=== PATIENT | female | born 1935 | race Two or more races ===

== ENCOUNTER 2017-04-17 19:22 | Inpatient (IN) | payer OTHER ==
[~2017-04-17] VITALS: Ht 149.9 cm; Wt 42.6 kg
--- NOTE | 2017-04-17 19:35 | NUR ---
GISELE FROM COURT [facility], C/O LOWER BACK PAIN AND BLQ PAIN. 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 PT AOX3 SLOVENIAN SPEAKING, SERGIO AT BEDSIDE TO TRANSLATE. RR EVEN AND UNLABORED. NO SOB NOTED. NAD NOTED. NO NVD AT THIS TIME. PT NOT DIAPHORETIC. PT GOWNED AND PLACED ON MONITOR. DR. BROOKS AT BEDSIDE FOR EVAL.
--- NOTE | 2017-04-17 19:52 | NUR ---
RADIOLOGY AT BEDSIDE FOR CXR
[2017-04-17] MEDS ORDERED: AMIO200T2 PO (20:01)
[2017-04-17] MEDS ORDERED: ASCO500T8 PO (20:01)
[2017-04-17] MEDS ORDERED: MULT1TAB73 PO (20:01)
[2017-04-17] MEDS ORDERED: LACT10SO7 PO (20:01)
[2017-04-17] MEDS ORDERED: ATOR80TA PO (20:01)
[2017-04-17] MEDS ORDERED: ZOLP5TAB7 PO (20:01)
[2017-04-17] MEDS ORDERED: HYDR-552 PO (20:01)
[2017-04-17] MEDS ORDERED: ALLO100T PO (20:01)
[2017-04-17] MEDS ORDERED: LISI2.5T2 PO (20:01)
[2017-04-17 20:04] LABS: CALCIUM, SERUM 8.4 mg/dL (8.5-10.1); CARBON DIOXIDE 26 mmol/L (21-32); CHLORIDE 102 mmol/L (98-107); CREATININE 2.2 mg/dL (0.6-1.3); GLUCOSE 153 mg/dL (74-106); INR 1.06 (0.87-1.13); POTASSIUM 5.5 mmol/L (3.5-5.1); PROTHROMBIN TIME 11.4 SECS (9.5-12.7); SODIUM SERUM 139 mmol/L (136-145); UREA NITROGEN, BLOOD 54 mg/dL (7-18)
--- NOTE | 2017-04-17 20:05 | NUR ---
URINE COLLECTED. CALLED LAB FOR LIGHTING ENGINEER.
[2017-04-17 20:11] LABS: TROPONIN I 0.019 ng/mL (0.00-0.056)
[2017-04-17 20:17] LABS: ALANINE AMINOTRANSFERASE 30 U/L (12-78); ALBUMIN 3.7 g/dL (3.4-5.0); ALKALINE PHOSPHATASE 66 U/L (46-116); ASPARTATE AMINOTRANSFERASE 29 U/L (15-37); B-TYPE NATRIURETIC PEPTIDE 15360 PG/ML (0-125); BILIRUBIN,DIRECT 0.2 mg/dL (0.0-0.2); BILIRUBIN,TOTAL 0.6 mg/dL (0.2-1.0); TOTAL PROTEIN, SERUM 8.5 g/dL (6.4-8.2)
[2017-04-17 20:20] LABS: BASOPHILS % (AUTO) 0.4 % (0.0-2.0); EOSINOPHILS % (AUTO) 0.6 % (0.0-6.0); HEMATOCRIT 27 % (33-45); HEMOGLOBIN 9.1 g/dL (11.5-14.8); LYMPHOCYTES # (AUTO) 0.4 /CMM (0.8-4.8); LYMPHOCYTES % (AUTO) 10.3 % (20.0-44.0); MEAN CORPUSCULAR HEMOGLOBIN 28 PG (26.0-33.0); MEAN CORPUSCULAR HGB CONC 33 g/dl (31.0-36.0); MEAN CORPUSCULAR VOLUME 84 fL (82-100); MONOCYTES # (AUTO) 0.3 /CMM (0.1-1.30); MONOCYTES % (AUTO) 8.5 % (2.0-12.0); NEUTROPHILS # (AUTO) 3.1 /CMM (1.8-8.9); NEUTROPHILS % (AUTO) 80.2 % (43.0-81.0); PLATELET COUNT (AUTO) 223 /CMM (150-450); RED BLOOD CELL COUNT(AUTO) 3.26 MIL/uL (4.0-5.2); WHITE BLOOD COUNT (AUTO) 3.9 K/uL (4.3-11.0)
[2017-04-17] MEDS ORDERED: FURO40TA5 PO (20:57)
[2017-04-17] MEDS ORDERED: SPIR25TA4 PO (20:57)
[2017-04-17] MEDS ORDERED: CIPR250T4 PO (20:57)
[2017-04-17] MEDS ORDERED: ONDA-25 PO (20:57)
[2017-04-17] MEDS ORDERED: ALBU8.5H2 INH (20:57)
[2017-04-17] MEDS ORDERED: [UNRECOGNIZED DRUG - CODE] PO (20:57)
[2017-04-17] MEDS ORDERED: METO25TA6 PO (20:57)
[2017-04-17] MEDS ORDERED: APIX2.5T PO (20:57)
[2017-04-17] MEDS ORDERED: PANT40TA4 PO (20:57)
[2017-04-17] MEDS ORDERED: FERR325T6 PO (20:57)
--- NOTE | 2017-04-17 20:57 | NUR ---
PT TO RADIOLOGY FOR CT ABD
--- NOTE | 2017-04-17 21:10 | NUR ---
DR. BROOKS SPEAKING TO DR. CYRUS MESSER REGARDING ADMISSION
--- NOTE | 2017-04-17 21:20 | NUR ---
REPORT GIVEN TO PEDRO ANDRADE FOR TELE BED 311-1
[2017-04-17 21:30] VITALS: BP 118/73
[2017-04-17] MEDS ORDERED: FUROSEMIDE 20 MG/2 ML VIAL IV ONE (21:30)
[2017-04-17 21:35] VITALS: BP 118/73
--- NOTE | 2017-04-17 21:35 | NUR ---
PUNCHER OPENING NOTES: RECEIVED PT FROM RN CAMMIE FROM ED. PT IS A/OX2-3. PT HAS PERIODS OF CONFUSION AND NOT RECALLING THINGS. PT IS WOLOF SPEAKING ONLY AND CAN ONLY SPEAK A LITTLE BIT OF [place] CITIZ[place]. PT HAS IV ON L FOREARM #20G AND IS PATENT AND INTACT. PT COMPLAINTS OF 2/10 LOWER BACK PAIN. PT INFORMED THAT FOR NOW SHE IS NPO SINCE WE ARE AWAITING FOR ADMISSION ORDERS. NO SOB. CALL LIGHT WITHIN PT'S REACH. BED KEPT IN LOW, LOCKED POSITION, AND SIDE RAILS X 2 UP. WILL CONTINUE TO MONITOR PT.
--- NOTE | 2017-04-17 21:38 | NUR ---
PT TRANSFERED PER ACLS PROTOCOL TO [facility] BED 311-1
[2017-04-17] MEDS ORDERED: MAGNESIUM HYDROXIDE 30 ML UDC PO PRN (22:30)
[2017-04-17] MEDS ORDERED: ACETAMINOPHEN 325 MG TABLET PO PRN (22:30)
[2017-04-17] MEDS ORDERED: ZOLPIDEM TARTRATE 5 MG TABLET PO PRN (22:30)
[2017-04-17] MEDS ORDERED: ONDANSETRON HCL/PF 4 MG/2 ML VIAL IVP PRN (22:30)
[2017-04-17] MEDS ORDERED: MAG HYDROX/AL HYDROX/SIMETH 30 ML UDC PO PRN (22:30)
[2017-04-17] MEDS ORDERED: Z GUARD REMEDY 2 OZ OINT TP PRN (22:30)
[2017-04-17] MEDS ORDERED: BUMETANIDE INJ 0.25 MG/ML VIAL ONE (22:42)
[2017-04-17] MEDS ORDERED: BUMETANIDE INJ 6 MG in IV NS 0.9% 36 ML IV ONE (23:00)
--- NOTE | 2017-04-17 23:17 | NUR ---
ENROBING MACHINE CORDER NOTES: BUMEX WAS ADMINISTERED AND IS TO BE RAN FOR 6 HOURS VIA IVPB. WILL CONTINUE TO MONITOR PT.
[2017-04-17] MEDS ORDERED: HYDROCODONE/APAP 5/325MG 1 EACH TABLET ONE (23:38)
[2017-04-17] MEDS: HYDROCODONE/APAP 5/325MG 1 EACH TABLET PO PRN (23:41)
--- NOTE | 2017-04-17 23:41 | NUR ---
ACQUISITIONS ANALYST NOTES: PT COMPLAINED OF 4/10 LOWER BACK PAIN. PT WAS ADMINISTERED NORCO 5-325MG PO. WILL CONTINUE TO MONITOR PT.
[2017-04-18] VITALS (8 sets, daily range): BP systolic 96–120; BP diastolic 49–73
[2017-04-18] MEDS ORDERED: HYDROCODONE/APAP 5/325MG 1 EACH TABLET ONE (04:41)
--- NOTE | 2017-04-18 05:05 | NUR ---
GARDEN WORKER NOTES: LAB IS HERE TO COLLECT BLOOD. PT KEPT NPO POST MIDNIGHT FOR LIPID PANEL.
[2017-04-18] MEDS: HYDROCODONE/APAP 5/325MG 1 EACH TABLET PO PRN ×2 (05:07→15:06)
--- NOTE | 2017-04-18 05:07 | NUR ---
JOSS HOUSE KEEPER NOTES: PT COMPLAINED OF 7/10 LOWER BACK PAIN. PT WAS ADMINISTERED NORCO 5. WILL CONTINUE TO MONITOR PT.
--- NOTE | 2017-04-18 06:45 | NUR ---
LENO SEWER CLOSING NOTES: ALL NEEDS WERE ATTENDED AND ANTICIPATED FOR. PT IS RESTING IN BED. PT IS A/OX2-3 WITH PERIODS OF CONFUSION. PT IS KHMER SPEAKING ONLY AND CAN ONLY SPEAK A LITTLE BIT OF [place]. PT IS ON TELE AND IS A-FIB 92. PT HAS IV ON L FOREARM #20G AND IS PATENT AND INTACT. BUMEX IV COMPLETE. PT IS NO S/L. NO S/S OF DISTRESS NOTED AT THIS TIME. NO SOB NOTED. CALL LIGHT WITHIN PT'S REACH. PT KEPT COMFORTABLE. BED KEPT IN LOW, LOCKED POSITION, AND SIDE RAILS X 2 UP. WILL ENDORSE TO AM NURSE FOR MARY ANN.
[2017-04-18 06:47] LABS: BASOPHILS % (AUTO) 0.6 % (0.0-2.0); EOSINOPHILS % (AUTO) 0.4 % (0.0-6.0); HEMATOCRIT 27 % (33-45); HEMOGLOBIN 9.1 g/dL (11.5-14.8); LYMPHOCYTES # (AUTO) 0.5 /CMM (0.8-4.8); LYMPHOCYTES % (AUTO) 13.8 % (20.0-44.0); MEAN CORPUSCULAR HEMOGLOBIN 28 PG (26.0-33.0); MEAN CORPUSCULAR HGB CONC 33 g/dl (31.0-36.0); MEAN CORPUSCULAR VOLUME 84 fL (82-100); MONOCYTES # (AUTO) 0.4 /CMM (0.1-1.30); MONOCYTES % (AUTO) 11.8 % (2.0-12.0); NEUTROPHILS # (AUTO) 2.5 /CMM (1.8-8.9); NEUTROPHILS % (AUTO) 73.4 % (43.0-81.0); PLATELET COUNT (AUTO) 195 /CMM (150-450); RDW COEFFICIENT OF VARIATION 18.5 (11.5-15.0); RED BLOOD CELL COUNT(AUTO) 3.24 MIL/uL (4.0-5.2); WHITE BLOOD COUNT (AUTO) 3.5 K/uL (4.3-11.0)
[2017-04-18 07:04] LABS: CALCIUM, SERUM 8.9 mg/dL (8.5-10.1); CARBON DIOXIDE 28 mmol/L (21-32); CHLORIDE 100 mmol/L (98-107); CREATININE 1.8 mg/dL (0.6-1.3); GLUCOSE 90 mg/dL (74-106); MAGNESIUM 2.6 mg/dL (1.8-2.4); POTASSIUM 4.8 mmol/L (3.5-5.1); SODIUM SERUM 138 mmol/L (136-145); UREA NITROGEN, BLOOD 53 mg/dL (7-18)
[2017-04-18 07:08] LABS: CHOLESTEROL 104 mg/dL (<200); HDL CHOLESTEROL 52 mg/dL (40-60); LDL 50 mg/dL (0-99); TRIGLYCERIDES 38 mg/dL (30-150)
[2017-04-18] MEDS: PANTOPRAZOLE 40 MG TABLET.DR PO SCH (07:30)
--- NOTE | 2017-04-18 07:46 | NUR ---
MS/RN OPENING NOTE PATIENT RECEIVED IN BED IN STABLE CONDITION. ALERT AND ORIENTED TIMES 3. SUDANESE SPEAKING. NO SIGNS OF ACUTE DISTRESS. NO COMPLAIN OF PAIN OR DISCOMFORT AT THIS TIME. ALL NEEDS ATTENDED TO. CALL LIGHT WITHIN REACH. WILL CONTINUE TO MONITOR.
[2017-04-18] MEDS ORDERED: AMIODARONE HCL 200 MG TABLET PO SCH (09:00)
[2017-04-18] MEDS ORDERED: LISINOPRIL (5MG) 5 MG TABLET PO SCH (09:00)
[2017-04-18] MEDS: ALLOPURINOL 100 MG TABLET PO SCH (09:46)
[2017-04-18] MEDS: METOPROLOL TARTRATE 25 MG TABLET PO SCH ×2 (09:47→16:46)
--- NOTE | 2017-04-18 10:00 | NUR ---
MS/RN S/B Dr Lindsey Seen by Dr Lindsey - continue with current care, including diuretics. Patient resides at [facility], due to chronic disability, will require short term placement upon discharge.
[2017-04-18] MEDS: APIXABAN 2.5 MG TABLET PO SCH ×2 (11:58→16:46)
--- NOTE | 2017-04-18 16:08 | NUR ---
MS/RN SPOKE WITH DR DOVE SPOKE WITH DR DOVE AND MADE AWARE PER PATIENT'S DAUGHTER PATIENT WAS BROUGHT TO ER DUE TO PATIENT NOTED BLOOD IN HER STOOL WITH NEW ORDER TO COLLECT STOOL FOR STOOL OB AND GI CONSULT
--- NOTE | 2017-04-18 18:16 | NUR ---
MS/RN SEEN BY DR VARMA PATIENT SEEN BY DR VARMA WITH NEW ORDER OF OB STOOL, LIPITOR AND ECHOCARDIOGRAM.
--- NOTE | 2017-04-18 18:26 | NUR ---
MS/RN CLOSING NOTE PATIENT IN BED IN STABLE CONDITION. ALERT AND ORIENTED TIMES 3. SLOVAK SPEAKING. NO SIGNS OF ACUTE DISTRESS. NO SIGNS OF PAIN OR DISCOMFORT. NEED STOOL COLLECTED FOR OB ENDORSE TO NEXT SHIFT. ALL NEEDS ATTENDED TO. CALL LIGHT WITHIN REACH. WILL ENDORSE TO NEXT SHIFT FOR CONTINUITY OF CARE.
--- NOTE | 2017-04-18 19:10 | NUR ---
RN NOTES RECEIVED PT AWAKE IN BED, HOB ELEVATED, NO SOB, NOT IN DISTRESS, ON ROOM AIR AND TOLERATED WELL. PT ALERT AND ORIENTED X2, WITH PERIODS OF CONFUSION AND FORGETFULNESS. PT CLAIMS ABDOMINAL DISCOMFORT AT THIS TIME. TELEMONITOR READS A. FIB WITH HEART RATE AT 62 . IV ACCESS ON LEFT FORE ARM PATENT AND INTACT. KEPT COMFORTABLE AND ATTENDED. FALL PRECAUTION OBSERVED. WILL CONTINUE TO MONITOR PT.
[2017-04-18] MEDS ORDERED: ATORVASTATIN 10 MG TABLET PO SCH (22:00)
[2017-04-18] MEDS ORDERED: ATORVASTATIN 40 MG TABLET PO SCH (22:00)
--- NOTE | 2017-04-18 23:16 | NUR ---
RN NOTES PT DENIES ANY PAIN AND DISCOMFORT AT THIS TIME. PT VERBALIZING HAVING DIFFICULTY SLEEPING, AMBIEN 5 MG TAB GIVEN PO AND TOLERATED WELL WILL CONTINUE TO MONITOR PT.
[2017-04-19 04:00] VITALS: BP 111/76
--- NOTE | 2017-04-19 06:32 | NUR ---
RN NOTES PT ASLEEP, BREATHING REGULAR AND UNLABORED, NO SIGNS OF DISTRESS AND DISCOMFORT NOTED, ON ROOM AIR WITH GOOD SATURATION. VITAL SIGNS STABLE, AFEBRILE. NO EPISODE OF NAUSEA AND VOMITING, NO COMPLAIN OF PAIN. TELEMONITOR READS A.FIB AT 67. ASSISTED TO THE BATHROOM, FALL PRECAUTION OBSERVED. NO SIGNIFICANT CHANGE IN CONDITION NOTED. WILL ENDORSE TO MORNING RN FOR CONTINUITY OF CARE.
[2017-04-19 06:59] VITALS: BP 100/60
[2017-04-19 07:14] LABS: BASOPHILS % (AUTO) 0.4 % (0.0-2.0); HEMATOCRIT 27 % (33-45); HEMOGLOBIN 8.9 g/dL (11.5-14.8); LYMPHOCYTES # (AUTO) 0.5 /CMM (0.8-4.8); LYMPHOCYTES % (AUTO) 16.3 % (20.0-44.0); MEAN CORPUSCULAR HEMOGLOBIN 28 PG (26.0-33.0); MEAN CORPUSCULAR HGB CONC 33 g/dl (31.0-36.0); MEAN CORPUSCULAR VOLUME 85 fL (82-100); MONOCYTES # (AUTO) 0.4 /CMM (0.1-1.30); MONOCYTES % (AUTO) 11.3 % (2.0-12.0); NEUTROPHILS # (AUTO) 2.3 /CMM (1.8-8.9); PLATELET COUNT (AUTO) 196 /CMM (150-450); RDW COEFFICIENT OF VARIATION 18.3 (11.5-15.0); RED BLOOD CELL COUNT(AUTO) 3.18 MIL/uL (4.0-5.2); WHITE BLOOD COUNT (AUTO) 3.2 K/uL (4.3-11.0)
--- NOTE | 2017-04-19 07:15 | NUR ---
ELECTROMECHANICAL EQUIPMENT TESTER NOTES PATIENT IN THE BATHROOM, VOIDED WITHOUT DIFFICULTY. PATIENT IS A/O X1 WITH CONFUSION. WITH CASING TRIMMER, REMINDED PATIENT TO USE CALL LIGHT IF SHE NEEDS ASSISTANCE. PATIENT APPEARS ANXIOUS, ON ROOM AIR, NO SOB. ON TELE MONITOR. MADE COMFORTABLE IN BED, PLACE CALL LIGHT WITHIN REACH. WILL CONT TO MONITOR.
[2017-04-19 07:58] LABS: ALANINE AMINOTRANSFERASE 25 U/L (12-78); ALBUMIN 3.2 g/dL (3.4-5.0); ALKALINE PHOSPHATASE 60 U/L (46-116); ASPARTATE AMINOTRANSFERASE 29 U/L (15-37); BILIRUBIN,TOTAL 0.5 mg/dL (0.2-1.0); CALCIUM, SERUM 8.4 mg/dL (8.5-10.1); CARBON DIOXIDE 30 mmol/L (21-32); CHLORIDE 102 mmol/L (98-107); CREATININE 1.9 mg/dL (0.6-1.3); GLUCOSE 84 mg/dL (74-106); MAGNESIUM 2.5 mg/dL (1.8-2.4); PHOSPHORUS 4.1 mg/dL (2.5-4.9); POTASSIUM 5.1 mmol/L (3.5-5.1); SODIUM SERUM 139 mmol/L (136-145); TOTAL PROTEIN, SERUM 7.3 g/dL (6.4-8.2); UREA NITROGEN, BLOOD 54 mg/dL (7-18)
[2017-04-19 08:00] VITALS: BP 111/80
[2017-04-19] MEDS: METOPROLOL TARTRATE 25 MG TABLET PO SCH ×2 (08:34→16:46)
[2017-04-19] MEDS: ALLOPURINOL 100 MG TABLET PO SCH (08:34)
[2017-04-19] MEDS: PANTOPRAZOLE 40 MG TABLET.DR PO SCH (08:34)
[2017-04-19] MEDS ORDERED: FUROSEMIDE 40 MG/4 ML VIAL IV SCH (09:00)
[2017-04-19] MEDS: HYDROCODONE/APAP 5/325MG 1 EACH TABLET PO PRN (10:29)
[2017-04-19] MEDS ORDERED: MUPIROCIN OINT 2% 22 GM TUBE SCH (15:00)
[2017-04-19 16:00] VITALS: BP_SYST 110; BP_DIAS 70; BP_DIAS 77
[2017-04-19 16:46] VITALS: BP 110/70
[2017-04-19] MEDS ORDERED: PEG 3350/NA SULF,BICARB,CL/KCL 4,000 ML BOTTLE PO ONE (17:30)
--- NOTE | 2017-04-19 17:30 | NUR ---
PATIENT IS SEEN BY DR. GUDINO-GI TODAY. MD SPOKE TO THE PATIENT WITH ANOTHER RN-SYL, PATIENT AGREED TO THE PROCEDURE COLONOSCOPY AND EGD, WITH CABIN SUPERVISOR-SYL/RN. CALLED DAUGHTER ARNIE, DR. GUDINO SPOKE TO THE DAUGHTER, SHE WILL COME TO THE FACILITY.
[2017-04-19] MEDS ORDERED: MINERAL OIL 133 ML (PYXIS) 1 EA ENEMA RC PRN (18:00)
--- NOTE | 2017-04-19 18:10 | NUR ---
ARNIE-DAUGHTER ARRIVED TO THE [facility], SPOKE TO THE PATIENT. PER DAUGHTER THE PATIENT DID NOT AGREED TO THE COLONOSCOPY AND EGD PROCEDURE. PATIENT APPEARS CONFUSED, PER DAUGHTER HER MOM FORGOT WHAT SHE SAID EARLIER. WITH RIBBON CLEANER-ELTON, EXPLAINED AGAIN THE IMPORTANCE, RISK AND BENEFITS OF THE PROCEDURE TO THE PATIENT, WITNESSED BY ANOTHER RN-SYL. PER PATIENT SHE WANTS TO GO HOME NOW, NO COLONOSCOPY AND EGD. DAUGHTER STATED SHE WILL TRANSPORT HER MOTHER TO THE [facility]. EXPLAINED TO THE DAUGHTER AND TO THE PATIENT WITH RIBBON CLEANER THE RISK, AND CONSEQUENCES INVOLVED IN LEAVING THE [facility], AMA AND THE BENEFITS OF CONTINUED TREATMENT, HOSPITALIZATION. PATIENT STILL REFUSE TO STAY AND DAUGHTER-ARNIE AGREED TO HER MOTHER.
--- NOTE | 2017-04-19 18:44 | NUR ---
CALLED [facility], SPOKE TO ANDRES ([place]). INFORMED PATIENT IS LEAVING HOSP AMA, AND DAUGHTER IS TRANSPORTING HER TO THE FACILITY. ANDRES CALLED THE [facility] POOLING OPERATOR RIGHT AWAY, AND PER ADNRES THE POOLING OPERATOR OT THE [facility] AGREED TO ACCEPT THE PATIENT BACK. CHARGE NURSE WAS INFORMED.
--- NOTE | 2017-04-19 19:00 | NUR ---
BODY AND FENDER MECHANIC- AMA PATIENT IS LEAVING AMA. SIGNED AMA FORM AND PLACE IN THE CHART. CHARGE NURSE IS AWARE. WILL INFORMED DR. MOELLER
--- NOTE | 2017-04-19 20:40 | NUR ---
CALLED DR. GUDINO LEFT VOICE MAIL TO EXCHANGE. CHARGE NURSE-NORM IS AWARE.
== END 2017-04-19 19:05 | disposition left against medical advice (07) | DRG 291 ==
LOC: ER 19:27 → TELE 21:21
PROVIDERS: ADMIT Nurse Practitioner Acute Care; ATTEND Nurse Practitioner Acute Care
DX: I13.0 Hypertensive heart and chronic kidney disease with heart failure and stage 1 through stage 4 chronic kidney disease, or unspecified chronic kidney disease (principal); I50.43 Acute on chronic combined systolic (congestive) and diastolic (congestive) heart failure; N17.0 Acute kidney failure with tubular necrosis; I31.3 Pericardial effusion (noninflammatory); D68.59 Other primary thrombophilia; I27.2 Other secondary pulmonary hypertension; E87.5 Hyperkalemia; K92.1 Melena; I42.0 Dilated cardiomyopathy; I48.91 Unspecified atrial fibrillation; K74.60 Unspecified cirrhosis of liver; R13.10 Dysphagia, unspecified; E78.5 Hyperlipidemia, unspecified; D72.819 Decreased white blood cell count, unspecified; D63.8 Anemia in other chronic diseases classified elsewhere; N18.9 Chronic kidney disease, unspecified; Z79.01 Long term (current) use of anticoagulants; Z83.3 Family history of diabetes mellitus; Z90.49 Acquired absence of other specified parts of digestive tract; R73.9 Hyperglycemia, unspecified; T50.0X5A Adverse effect of mineralocorticoids and their antagonists, initial encounter; Y92.009 Unspecified place in unspecified non-institutional (private) residence as the place of occurrence of the external cause
CPT/HCPCS: 36415; 71010-TC; 71250-TC; 80048-TC; 80053-TC; 80061-TC; 80076-TC; 83735-TC; 83880; 84100-TC; 84484-TC; 85025-TC; 85730-TC; 86850-TC; 87081-TC; 93307-TC; A4216; A4606; J3490; Z7610

== ENCOUNTER 2018-09-26 21:48 | Inpatient (IN) | payer OTHER ==
[~2018-09-26] VITALS: Ht 157.5 cm; Wt 47.2 kg
[~2018-09-26 21:48] MED LIST: ALBU8.5H8 INH; ALLO100T PO; AMIO200T4 PO; APIX2.5T PO; ASCO500T8 PO; ATOR80TA PO; CIPR250T4 PO; FERR325T6 PO; FURO40TA5 PO; HYDR-4384 PO; LACT20SO4 PO; LISI2.5T2 PO; METO25TA6 PO; MULT1TAB73 PO; ONDA4TAB10 PO; PANT40TA4 PO; PHEN-894 PO; SPIR25TA6 PO; ZOLP5TAB8 PO
--- NOTE | 2018-09-26 21:54 | NUR ---
PT GISELE. COMP OF "FELL AT ASSISTED LIVING FACILITY OFF OF A WHEELCHAIR" -SOB. -N/V -DIZZINESS. -ACUTE DISTRESS. AWAITING MD CAPPS.
[2018-09-26] MEDS ORDERED: ONDANSETRON HCL/PF 4 MG/2 ML VIAL ONE (23:26)
[2018-09-26] MEDS ORDERED: HYDROMORPHONE 1 MG/1 ML DISP.SYRIN ONE (23:26)
[2018-09-26] MEDS ORDERED: HYDROMORPHONE INJ 0.5 MG/0.5 ML SYRINGE IV ONE (23:30)
[2018-09-26] MEDS ORDERED: ONDANSETRON HCL/PF - ER 4 MG/2 ML VIAL IV ONE (23:30)
[2018-09-26 23:56] LABS: BASOPHILS % (AUTO) 0.5 % (0.0-2.0); EOSINOPHILS % (AUTO) 0.4 % (0.0-6.0); HEMATOCRIT 30 % (33-45); HEMOGLOBIN 9.5 g/dL (11.5-14.8); LYMPHOCYTES # (AUTO) 0.3 /CMM (0.8-4.8); LYMPHOCYTES % (AUTO) 4.8 % (20.0-44.0); MEAN CORPUSCULAR HGB CONC 32 g/dl (31.0-36.0); MEAN CORPUSCULAR VOLUME 90 fL (82-100); MONOCYTES # (AUTO) 0.4 /CMM (0.1-1.30); MONOCYTES % (AUTO) 6.4 % (2.0-12.0); NEUTROPHILS # (AUTO) 5.4 /CMM (1.8-8.9); NEUTROPHILS % (AUTO) 87.9 % (43.0-81.0); PLATELET COUNT (AUTO) 160 /CMM (150-450); RED BLOOD CELL COUNT(AUTO) 3.29 MIL/uL (4.0-5.2); WHITE BLOOD COUNT (AUTO) 6.1 K/uL (4.3-11.0)
[2018-09-27] VITALS (25 sets, daily range): BP systolic 88–117; BP diastolic 43–70
[2018-09-27] MEDS ORDERED: METOPROLOL TARTRATE INJ 5 MG/5 ML AMPUL IV ONE
[2018-09-27] MEDS ORDERED: FUROSEMIDE 40 MG/4 ML VIAL IV ONE
[2018-09-27] MEDS ORDERED: METOPROLOL TARTRATE INJ 5 MG/5 ML AMPUL ONE (00:06)
[2018-09-27] MEDS ORDERED: FUROSEMIDE 20 MG/2 ML VIAL ONE (00:06)
[2018-09-27 00:28] LABS: ALANINE AMINOTRANSFERASE 33 U/L (12-78); ALBUMIN 3.5 g/dL (3.4-5.0); ALKALINE PHOSPHATASE 74 U/L (46-116); ASPARTATE AMINOTRANSFERASE 33 U/L (15-37); CARBON DIOXIDE 33 mmol/L (21-32); CHLORIDE 103 mmol/L (98-107); CREATININE 1.1 mg/dL (0.6-1.3); GLUCOSE 126 mg/dL (74-106); POTASSIUM 4.8 mmol/L (3.5-5.1); SODIUM SERUM 142 mmol/L (136-145); TOTAL PROTEIN, SERUM 7.8 g/dL (6.4-8.2); UREA NITROGEN, BLOOD 38 mg/dL (7-18)
[2018-09-27 00:32] LABS: CALCIUM, SERUM 8.8 mg/dL (8.5-10.1)
[2018-09-27 01:10] LABS: APPEARANCE,URINE Clear (CLEAR); BILIRUBIN,URINE Negative (NEGATIVE); BLOOD, URINE Small Ery/uL (NEGATIVE); COLOR,URINE Yellow (YELLOW); KETONES,URINE Negative (NEGATIVE); LEUKOCYTE ESTERASE ,URINE Trace (NEGATIVE); NITRITE, URINE Negative (NEGATIVE); PH,URINE 5.5 (5.0-8.0); PROTEIN,URINE Negative (NEGATIVE); UGLUCOSE Negative (NEGATIVE); UROBILINOGEN,URINE 0.2 EU/dL (0.2)
[2018-09-27 01:41] LABS: BACTERIA,URINE Few /HPF (None Seen); RBC,URINE 0-2 /HPF (0-2); SQUAMOUS EPITHELIAL CELL,UR Few /HPF (None Seen)
--- NOTE | 2018-09-27 02:05 | NUR ---
CALL PT'S DAUGHTER, MADELIN, WITH ANY UPDATES. SEE PT DATA AND PERSON TO NOTIFY.
--- NOTE | 2018-09-27 02:31 | NUR ---
SPOKE TO DONY, RECEIVED VERBAL AUTH TO ADMIT PT TO INPATIENT. DR COBOS HAS BEEN PAGED. AWAITING CALL BACK
--- NOTE | 2018-09-27 03:07 | NUR ---
REPORT GIVEN TO TONYA VASQUEZ.
--- NOTE | 2018-09-27 03:40 | NUR ---
SPOOL WINDER NOTE RECEIVED PT FROM ER VIA STRETCHER, PT IS AOX2-3, RIGHT HIP FRACTURE, ON 8L OF O2 VIA MASK TITRATED TO 4L O2, NO S/SX OF RESPIRATORY OR CARDIAC DISTRESS, ON TELE SR, SKIN KEPT CLEAN AND DRY, F/C DRAINING TO GRAVITY YELLOW URINE, RAC #20G PATENT FLUSHING WELL. RIGHT LEG EDEMA NOTED. BED IN LOW LOCKED POSITION, CALL LIGHT WITHIN REACH, WILL CONTINUE TO MONITOR FOR ANY CHANGES IN CONDITION.
[2018-09-27] MEDS ORDERED: ONDANSETRON HCL/PF 4 MG/2 ML VIAL IV PRN (04:00)
[2018-09-27] MEDS ORDERED: HYDROMORPHONE INJ 0.5 MG/0.5 ML SYRINGE IV PRN (04:00)
--- NOTE | 2018-09-27 04:29 | NUR ---
SALES DEPARTMENT CLERK NOTE MESSAGE TO DR COBOS CONCERNING PT REACTION TO DILAUDID 1MG IN ER NEW ORDER TO DECREASE DOSE TO DILAUDID 0.5MG Q3H IV PRN AND NORCO 5/325 MG Q4H PO FOR PAIN
[2018-09-27] MEDS ORDERED: HYDROMORPHONE 1 MG/1 ML DISP.SYRIN IV PRN (04:30)
[2018-09-27 06:26] LABS: CALCIUM, SERUM 8.4 mg/dL (8.5-10.1); CARBON DIOXIDE 35 mmol/L (21-32); CHLORIDE 106 mmol/L (98-107); CREATININE 1.3 mg/dL (0.6-1.3); GLUCOSE 114 mg/dL (74-106); POTASSIUM 5.4 mmol/L (3.5-5.1); SODIUM SERUM 144 mmol/L (136-145); UREA NITROGEN, BLOOD 40 mg/dL (7-18)
[2018-09-27 06:40] LABS: CHOLESTEROL 85 mg/dL (<200); HDL CHOLESTEROL 52 mg/dL (40-60); LDL 33 mg/dL (0-99); TRIGLYCERIDES 29 mg/dL (30-150)
[2018-09-27 06:46] LABS: BASOPHILS % (AUTO) 0.2 % (0.0-2.0); HEMATOCRIT 26 % (33-45); HEMOGLOBIN 8.3 g/dL (11.5-14.8); LYMPHOCYTES # (AUTO) 0.2 /CMM (0.8-4.8); LYMPHOCYTES % (AUTO) 2.7 % (20.0-44.0); MEAN CORPUSCULAR HGB CONC 33 g/dl (31.0-36.0); MEAN CORPUSCULAR VOLUME 89 fL (82-100); MONOCYTES # (AUTO) 0.7 /CMM (0.1-1.30); MONOCYTES % (AUTO) 8.6 % (2.0-12.0); NEUTROPHILS % (AUTO) 88.5 % (43.0-81.0); PLATELET COUNT (AUTO) 142 /CMM (150-450); RED BLOOD CELL COUNT(AUTO) 2.86 MIL/uL (4.0-5.2); WHITE BLOOD COUNT (AUTO) 7.9 K/uL (4.3-11.0)
--- NOTE | 2018-09-27 07:20 | NUR ---
RN NOTES PATIENT ASLEEP, RESPONSIVE TO VERBAL AND TACTILE STIMULI. PATIENT OPENS EYES, NON-VERBAL AT THIS TIME. ON O2 AT 6LPM VIA MASK WITH SPO2 OF 94%. KEPT HOB ELEVATED, KEPT COMFORTABLE, NEEDS ATTENDED, CALL LIGHT WITHIN REACH, SAFETY MEASURES IN PLACED, WILL CONTINUE TO MONITOR.
[2018-09-27] MEDS: METOPROLOL TARTRATE 25 MG TABLET PO SCH ×2 (08:50→16:46)
[2018-09-27] MEDS: PANTOPRAZOLE 40 MG TABLET.DR PO SCH (08:51)
[2018-09-27] MEDS: ALLOPURINOL 100 MG TABLET PO SCH (08:51)
[2018-09-27] MEDS ORDERED: FUROSEMIDE 20 MG/2 ML VIAL IV SCH (09:00)
[2018-09-27] MEDS ORDERED: PHENAZOPYRIDINE HCL 200 MG TABLET PO SCH (09:00)
[2018-09-27] MEDS ORDERED: MORPHINE SULFATE INJ 2 MG/ML DISP.SYRIN IM PRN (09:00)
[2018-09-27] MEDS ORDERED: ATORVASTATIN 40 MG TABLET PO SCH (09:00)
[2018-09-27] MEDS ORDERED: FUROSEMIDE 40 MG TABLET PO SCH (09:00)
[2018-09-27] MEDS ORDERED: AMIODARONE HCL 200 MG TABLET PO SCH (09:00)
[2018-09-27 10:25] LABS: ABG BASE EXCESS 5.9 mmol/L; ABG OXYGEN SATURATION 96.5 % (92.0-98.5); ABG PCO2 76.5 mmHg (35.0-45.0); ABG PH 7.268 (7.350-7.450); AaDO2 93.2 mmHg; COHb 1.6 % (0.5-1.5); MetHb 0.5 % (0.0-1.5); O2Hb 94.5 % (94.0-97.0); SITE, ABG Right Radial; VENT MODE, BG SIMPLE MASK
--- NOTE | 2018-09-27 10:29 | NUR ---
RN NOTES ABG RESULT RELAYED TO DR. BAIRES AND RECEIVED ORDER TO TRANSFER PATIENT TO ICU.
--- NOTE | 2018-09-27 10:30 | NUR ---
RN NOTES RECEIVED ORDER FROM DR. KNOX TO TRANSFER PATIENT TO ICU FOR BIPAP.
--- NOTE | 2018-09-27 10:47 | NUR ---
RN NOTES PATIENT TRANSFERRED TO ICU VIA ACLS PROTOCOL. PATIENT REMAINS LETHARGIC, ABLE TO OPEN EYES WITH VERBAL AND TACTILE STIMULI. PLACED ON O2 AT 2LPM VIA NC. REPORT GIVEN TO CAMMIE RN FOR CONTINUITY OF CARE. BELONGINGS TRANSFERRED TO ICU. CALLED DAUGHTER MADELIN TWICE AND LEFT MESSAGES, STILL NO CALL BACK.
[2018-09-27 10:49] LABS: THYROID STIMULATING HORMONE 3.367 uIU/mL (0.358-3.74)
[2018-09-27] MEDS: IPRATROPIUM NEB FS 0.5 MG/2.5 ML AMPUL.NEB NEB SCH ×4 (11:19→22:39)
--- NOTE | 2018-09-27 11:42 | NUR ---
RN NOTE 1040: Received patient via bed from [facility]. Able to open eyes but lethargic. Transferred to ICU due to hypercarbic RF, RT placed her on Bipap. RAC g20 intact. Primary Dx for this admission is right hip fx. Awaiting BLE duplex. On 94% O2 sat on Bipap. Controlled Afib 80's on the monitor. 1130: S/E by PA of Dr. Smiley(ortho), no new order at this time. 1140: No any significant changes noted at this time. 99% O2 sat on Bipap, still lethargic. Will continue POC.
[2018-09-27] MEDS ORDERED: NALOXONE HCL 0.4 MG/ML AMPUL IV ONE (13:00)
[2018-09-27] MEDS ORDERED: ALBUTEROL FS 2.5 MG/3 ML VIAL.NEB NEB PRN (13:30)
--- NOTE | 2018-09-27 13:51 | NUR ---
RN NOTE 1230: Dr. Norton called and updated re: the patient. Obtained order to given Narcan 0.2 x1. 1245: Narcan given, patient became more awake. 1350: Still on Bipap, patient has episodes of trying to pull out Bipap tubings. Will continue to monitor.
[2018-09-27 15:01] LABS: CALCIUM, SERUM 8.4 mg/dL (8.5-10.1); CARBON DIOXIDE 32 mmol/L (21-32); CHLORIDE 106 mmol/L (98-107); CREATININE 1.8 mg/dL (0.6-1.3); GLUCOSE 101 mg/dL (74-106); POTASSIUM 5.7 mmol/L (3.5-5.1); SODIUM SERUM 143 mmol/L (136-145); UREA NITROGEN, BLOOD 46 mg/dL (7-18)
--- NOTE | 2018-09-27 17:56 | NUR ---
RN NOTE 1645: Tried to wean off Bipap, patient only tolerated for 15minutes. Patient became havign HR 120-130, O2 sat 91-92%. 1750: Patient does not want to be turned much due to right hip fracture. Positioned for comfort. Patient is clean, will endorse to next shift.
[2018-09-27] MEDS ORDERED: ZOLPIDEM TARTRATE 5 MG TABLET PO SCH (18:00)
--- NOTE | 2018-09-27 19:00 | NUR ---
MENTAL HYGIENIST NOTES Received patient awake,alert,restless and uncooperative trying to get off soft wrist restraints.On BIPAP 15/5,rate=14,30 % O2,not in nay acute distress but breathing slightly labored and deep .No sign of pain when patient is immobile but grimaces in pain when turned or moved ( when right leg is touched or moved especially).Comfort measures done,needs attended. Awaiting kayexalate from pharmacy( will administer kayexalate rectally as ordered as patient is NPO) for hyperkalemia.
--- NOTE | 2018-09-27 19:37 | NUR ---
PATIENT RECEIVED IN BIPAP 28/12, RR 14, 30%, TOLERATING WITH NO SIGN OF DISTRESS. GIVEN IN-LINE TREATMENTS WITH NO ADVERSE REACTIONS. AMBU BAG AT BEDSIDE. ALARMS ARE AUDIBLE AND VISIBLE. BIPAP PLUGGED INTO RED OUTLET. Addendum: 09/27/18 at [address] RT Amended: Links added.
[2018-09-27] MEDS ORDERED: SODIUM POLYSTYRENE SULFONATE 15 G/60 ML BOTTLE RC ONE (20:00)
[2018-09-28] VITALS (27 sets, daily range): BP systolic 90–126; BP diastolic 54–80
--- NOTE | 2018-09-28 | NUR ---
THERAPIST RRT NOTES Remains stable,tolerating BIPAP ,less restless and calmer, and .Precaution observedawake,alert not in any distress,breathing easier and non labored.Comfort care done.Precaution observed on right leg/femur when moved or turned.
[2018-09-28 00:06] LABS: ABG OXYGEN SATURATION 98.2 % (92.0-98.5); ABG PCO2 41.9 mmHg (35.0-45.0); ABG PO2 130.7 mmHg (75.0-100.0); MetHb 0.8 % (0.0-1.5); O2Hb 96.4 % (94.0-97.0); PEEP,BG 5 cm H2O; SITE, ABG Right Radial; VENT MODE, BG ST
[2018-09-28] MEDS: IPRATROPIUM NEB FS 0.5 MG/2.5 ML AMPUL.NEB NEB SCH ×6 (02:52→23:17)
--- NOTE | 2018-09-28 04:00 | NUR ---
JEWELRY DRILLING MACHINE OPERATOR NOTES Calm,awake,alert,more cooperative.Tolerating BIPAP ,with O2 sat. 97-100% ,not in any distress.AM bath given.
[2018-09-28 04:52] LABS: BASOPHILS % (AUTO) 0.1 % (0.0-2.0); HEMATOCRIT 24 % (33-45); HEMOGLOBIN 7.9 g/dL (11.5-14.8); LYMPHOCYTES # (AUTO) 0.3 /CMM (0.8-4.8); LYMPHOCYTES % (AUTO) 5.1 % (20.0-44.0); MEAN CORPUSCULAR HGB CONC 32 g/dl (31.0-36.0); MEAN CORPUSCULAR VOLUME 89 fL (82-100); MONOCYTES # (AUTO) 0.6 /CMM (0.1-1.30); MONOCYTES % (AUTO) 9.8 % (2.0-12.0); NEUTROPHILS # (AUTO) 5.1 /CMM (1.8-8.9); PLATELET COUNT (AUTO) 127 /CMM (150-450); RED BLOOD CELL COUNT(AUTO) 2.75 MIL/uL (4.0-5.2)
[2018-09-28 04:59] LABS: CALCIUM, SERUM 8.4 mg/dL (8.5-10.1); CARBON DIOXIDE 30 mmol/L (21-32); CHLORIDE 105 mmol/L (98-107); CREATININE 2.1 mg/dL (0.6-1.3); GLUCOSE 118 mg/dL (74-106); POTASSIUM 5.4 mmol/L (3.5-5.1); SODIUM SERUM 144 mmol/L (136-145); UREA NITROGEN, BLOOD 59 mg/dL (7-18)
--- NOTE | 2018-09-28 07:00 | NUR ---
ROTOPRINTER NOTES Remains stable,still on BIPAP but non labored breathing.Awake,alert ,still on and off agitated.Report given to day shift RN Ella
--- NOTE | 2018-09-28 07:10 | NUR ---
RN INITIAL NOTES: Rec'd pt awake on bed, restless. On Bipap sating at 98%. On telemonitor, uncontrolled Afib HR 120's. Has RAC G20 SL & LFA G20 SL, both patent & intact w/ no s/sx of infection/infiltration noted. Has FC draining to BSB. Has rectal tube in place. Has B soft wrist restraints d/t episode of pulling out Bipap mask & lines. Safety precautions in place. Bed in locked & lowest pos. Call light placed w/in reach. Will cont to monitor & attend pt needs.
--- NOTE | 2018-09-28 08:00 | NUR ---
Pt seen & examined by Dr. Errol galdamez/ orders made & carried out. Per MD, may order swallow eval.
--- NOTE | 2018-09-28 08:24 | NUR ---
Pt seen & examined by Dr. Saenz. Per , change order of CT chest w/ contrast to w/o contrast. Dr. Norton informed of the changes.
[2018-09-28] MEDS ORDERED: SODIUM POLYSTYRENE SULFONATE 15 G/60 ML BOTTLE PO ONE (08:30)
[2018-09-28 08:36] LABS: ABG OXYGEN SATURATION 90.8 % (92.0-98.5); ABG PCO2 41.1 mmHg (35.0-45.0); ABG PH 7.441 (7.350-7.450); ABG PO2 62.2 mmHg (75.0-100.0); AaDO2 117.9 mmHg; COHb 1.3 % (0.5-1.5); MetHb 0.4 % (0.0-1.5); O2Hb 89.3 % (94.0-97.0); SITE, ABG Right Radial; VENT MODE, BG NC 3L
--- NOTE | 2018-09-28 08:45 | NUR ---
Pt seen & examined by Dr. Villegas, able to speak w/ dtr at bedside.
[2018-09-28] MEDS: IV NS 0.9% 1,000 ML IV PRN ×2 (08:53→20:10)
--- NOTE | 2018-09-28 09:00 | NUR ---
Pt was able to remove her B soft wrist restraints & pulled out her IV on LFA G20. Pressure dressing applied. 0930H Pt's dtr came & requested to remove pt's B soft wrist restraints. Pt is more awake & oriented, follows simple commands.
[2018-09-28] MEDS: ALLOPURINOL 100 MG TABLET PO SCH (09:10)
[2018-09-28] MEDS: PANTOPRAZOLE 40 MG TABLET.DR PO SCH (09:10)
[2018-09-28] MEDS: METOPROLOL TARTRATE 25 MG TABLET PO SCH ×3 (09:10→17:58)
--- NOTE | 2018-09-28 09:30 | NUR ---
Swallow evaluation done by Armando while dtr at bedside.
--- NOTE | 2018-09-28 10:00 | NUR ---
Reinforcement re: feeding the pt w/ strict aspiration provided to the pt's dtr as RN noted that dtr was feeding the pt while pt is in semi jenkins's position as well as giving pt pudding & water despite of health teaching done by speech therapist earlier. Dtr verbalized understanding of the health teaching provided by the RN.
[2018-09-28] MEDS: ACETAMINOPHEN 325 MG TABLET PO PRN (12:33)
--- NOTE | 2018-09-28 13:59 | NUR ---
WOUND CARE CONSULT: PT NOT SEEN YET FOR SKIN ASSESSMENT DUE TO PT SLEEPING SOUNDLY AT THIS TIME. DAUGHTER AT BEDSIDE. RECOMMENDATIONS MADE FOR SKIN PROTECTION. DISCUSSED WITH NURSING STAFF. FIRST STEP LOW AIRLOSS MATTRESS ORDERED. CURRENT GHADA SCORE IS 12. WILL SEE PT PT CONDITION PERMITS. MD IN AGREEMENT WITH PLAN OF CARE.
[2018-09-28] MEDS ORDERED: Z GUARD REMEDY 2 OZ OINT TP PRN (14:00)
--- NOTE | 2018-09-28 14:05 | NUR ---
Rec'd call from Dr. Norton & updated about pt condition w/ orders to transfer pt out if ICU to [facility]. CN & dtr made aware.
--- NOTE | 2018-09-28 14:15 | NUR ---
Pt seen & examined by Dr. Chery MD was able to talk to the dtr at bedside regarding the plan sx Pericardiocentesis. Questions & concerns of the dtr as well as pt's son (who's over the phone) were answered by . Family to decide about the said procedure. Per , poss schedule will be on Wednesday09/30/18.
[2018-09-28] MEDS: Z GUARD REMEDY 2 OZ OINT TP SCH (17:05)
[2018-09-28] MEDS: HYDROCODONE/APAP 5/325MG 1 EACH TABLET PO PRN ×2 (17:46→22:07)
--- NOTE | 2018-09-28 18:35 | NUR ---
RN CLOSING NOTES: No significant changes noted w/in shift. Pt tolerating NC at 3lpm. On telemonitor, controlled Afib HR 80bpm. Inserted new IV line on ESE G22, w/ NS x 100cc/hr infusing well. FC kept draining to BSB. Rectal tube kept in place for now s/p kayexalate. Placed on KCI mattress. Pt fed w/ strict aspiration precaution. Safety precautions kept in place. Bed in locked & lowest pos. Call light placed w/in reach. Will endorse to PM RN for MARY ANN. Awaiting [facility] bed for transfer as ordered.
--- NOTE | 2018-09-28 19:30 | NUR ---
EXPLORATION GEOLOGIST NOTE PT RECEIVED ASLEEP IN BED BUT EASILY AROUSABLE TO NAME. A/O X2 AND GUATEMALAN SPEAKING. ON 3L OF O2 VIA NC AND SATURATING WELL. BREATHING UNLABORED. HOB ELEVATED AND ON ASPIRATION PRECAUTIONS. TELE-AFIB 70'S CONTROLLED. NO C/O PAIN AT THIS TIME. IV ESE #22 CLEAN AND DRY WITH FLUIDS INFUSING. BAIRD CATHETER IN PLACE AND DRAINING BY GRAVITY. FLEXI SEAL IN PLACE AND DRAINING. CALL LIGHT WITHIN REACH. WILL MONITOR.
--- NOTE | 2018-09-28 21:21 | NUR ---
RN NOTES REPORT RECEIVED FROM LIPSTICK MOLDER YASHIRA FOR PATIENT MARY ANN
--- NOTE | 2018-09-28 21:50 | NUR ---
KEYBOARDING CLERK NOTE REPORT GIVEN TO TYLER VASQUEZ FOR CONTINUITY OF CARE.
--- NOTE | 2018-09-28 22:00 | NUR ---
RN NOTES RECEIVED THE PATIENT VIA BED FROM ICU. PT IS A/O X3, THAI SPEAKING ONLY. ON 3L NASAL CANNULA, NO S/S OF RESP DISTRESS. PT IS CONTROLLED AFIB ON THE MONITOR, HR 70'S. FLEXISEAL AND BAIRD CATH ARE INTACT. RIGHT UPPER ARM 22G WITH NS @ 100MLS/HR FLUSHED AND PATENT, NO S/S OF INFILTRATION/INFECTION, DRESSING CDI. BED LOW AND LOCKED, SIDERAILS UP, CALL LIGHT WITHIN REACH. WILL MONITOR
[2018-09-29] VITALS (11 sets, daily range): BP systolic 91–114; BP diastolic 48–75
[2018-09-29] MEDS: IPRATROPIUM NEB FS 0.5 MG/2.5 ML AMPUL.NEB NEB SCH ×7 (02:39→22:49)
--- NOTE | 2018-09-29 06:00 | NUR ---
RN CLOSING NOTES PT REMAINS STABLE OF THE MOMENT. ALL DUE MEDS GIVEN, AM CARE PROVIDED. WILL ENDORSE MARY ANN TO AM RN
[2018-09-29 07:23] LABS: BASOPHILS % (AUTO) 0.2 % (0.0-2.0); HEMATOCRIT 24 % (33-45); HEMOGLOBIN 7.5 g/dL (11.5-14.8); LYMPHOCYTES # (AUTO) 0.3 /CMM (0.8-4.8); LYMPHOCYTES % (AUTO) 3.8 % (20.0-44.0); MEAN CORPUSCULAR HGB CONC 32 g/dl (31.0-36.0); MEAN CORPUSCULAR VOLUME 90 fL (82-100); MONOCYTES # (AUTO) 0.6 /CMM (0.1-1.30); MONOCYTES % (AUTO) 7.3 % (2.0-12.0); NEUTROPHILS # (AUTO) 6.8 /CMM (1.8-8.9); NEUTROPHILS % (AUTO) 88.7 % (43.0-81.0); PLATELET COUNT (AUTO) 118 /CMM (150-450); RED BLOOD CELL COUNT(AUTO) 2.62 MIL/uL (4.0-5.2); WHITE BLOOD COUNT (AUTO) 7.7 K/uL (4.3-11.0)
[2018-09-29 07:35] LABS: ALANINE AMINOTRANSFERASE 26 U/L (12-78); ALBUMIN 2.8 g/dL (3.4-5.0); ALKALINE PHOSPHATASE 47 U/L (46-116); ASPARTATE AMINOTRANSFERASE 23 U/L (15-37); BILIRUBIN,TOTAL 1.1 mg/dL (0.2-1.0); CALCIUM, SERUM 7.6 mg/dL (8.5-10.1); CARBON DIOXIDE 32 mmol/L (21-32); CHLORIDE 106 mmol/L (98-107); CREATININE 2.3 mg/dL (0.6-1.3); GLUCOSE 92 mg/dL (74-106); MAGNESIUM 2.4 mg/dL (1.8-2.4); POTASSIUM 3.9 mmol/L (3.5-5.1); SODIUM SERUM 143 mmol/L (136-145); TOTAL PROTEIN, SERUM 6.5 g/dL (6.4-8.2); UREA NITROGEN, BLOOD 71 mg/dL (7-18)
[2018-09-29] MEDS: METOPROLOL TARTRATE 25 MG TABLET PO SCH ×2 (09:00→17:00)
[2018-09-29] MEDS ORDERED: FUROSEMIDE 20 MG/2 ML VIAL IV ONE ×2 (09:00→18:00)
[2018-09-29] MEDS: ALLOPURINOL 100 MG TABLET PO SCH (09:04)
[2018-09-29] MEDS: PANTOPRAZOLE 40 MG TABLET.DR PO SCH (09:04)
[2018-09-29] MEDS: IV NS 0.9% 1,000 ML IV PRN (09:04)
[2018-09-29] MEDS: Z GUARD REMEDY 2 OZ OINT TP SCH (09:06)
--- NOTE | 2018-09-29 09:37 | NUR ---
RN NOTE PER DR PAPITO BAIRES TO TRANSFUSE 1 UNIT OF PRBC, AND TO GIVE 20 MG OF LASIX IV AFTER TRANSFUSION. WILL CARRY OUT THE ORDERS.
--- NOTE | 2018-09-29 11:39 | NUR ---
RT Pt refused HHN tx at this time, family by bedside to help with translation. No signs of SOB or respiratory distress noted. Addendum: 09/29/18 at 1140 by PETER ALVAREZ RT Amended: Links added.
[2018-09-29] MEDS: HYDROCODONE/APAP 5/325MG 1 EACH TABLET PO PRN (12:08)
--- NOTE | 2018-09-29 14:50 | NUR ---
RN NOTE SPOKE WITH DR COBOS TO ADDRESS THE PAIN IN R HIP UNRELIEVED BY NORCO AND MORPHINE, ADJUSTED MORPHINE DOSE. WILL KAREEM OUT ORDER AND MONITOR PT.
[2018-09-29] MEDS ORDERED: MORPHINE SULFATE INJ 2 MG/ML DISP.SYRIN IV PRN (15:00)
--- NOTE | 2018-09-29 17:30 | NUR ---
RN NOTE SPOKE WITH DR COBOS ABOUT PT BEING TACHYCARDIC 145, AFIB ON THE ANALYTICS INTERN, DESPITE OF PAIN ADDRESSED AND LOPRESSOR GIVEN. PT ON MASK 10 L/MIN, BLOOD TRANSFUSION IS IN PROGRESS. PT BECAME AGITATE REMOVING ANALYTICS INTERN, PULSE OXIMETRY, OXYGEN MASK, PT PLACED ON MANJINDER. SOFT WRIST RESTRAINTS. GOT AN ORDER FOR LASIX 20 MG IV NOW. TO DISCONTINUE HER IV FLUIDS. WILL CARRY OUT AND MONITOR PT CLOSELY.
--- NOTE | 2018-09-29 17:31 | NUR ---
1729 Received all from Amita ACUÑA at [facility], pt is accepted at [facility]. Pt will transfer in am @ 5449 directly to prep and hold nurse to give report at 0500 @ [phone]. call or contact centre manager CM can be reach at [phone] for any changes. CN made aware. Addendum: 09/29/18 at 1731 by TERRENCE NEAL CMG Amended: Links added.
[2018-09-29] MEDS ORDERED: HYDROCODONE/APAP 5/325MG 1 EACH TABLET PO PRN ×3 (18:00→20:30)
[2018-09-29] MEDS ORDERED: FUROSEMIDE 40 MG/4 ML VIAL IV SCH (19:00)
--- NOTE | 2018-09-29 19:00 | NUR ---
RN NOTE SPOKE WITH DR COBOS AGAIN REGARDING THE HEART RATE AND AND PT OXYGENATION SATURATION ON MASK DROPPED TO 83-84%. PT PUT ON ON NON REBREATHER MASK 15.0 L/MIN, SATURATION 96%. CRACKLES HEARD UPON AUSCULTATION, BP STABLE. BLOOD TRANSFUSION IS ALMOST DONE, PER DR COBOS TO GIVE ANOTHER DOSE OF LASIX40 MG IV AND THEN LASIX 20 MG IV Q12H AND STAT CXR. WILL ORDER AND CARRY OUT.
--- NOTE | 2018-09-29 19:20 | NUR ---
TELE/RN INITIAL NOTES RECEIVED PT IN BED, ALERT, APPEARS CONFUSED AND RESTLESS, PT TRYING TO REMOVE MASK. DAUGHTER AT BEDSIDE. ON NRB MASK, SPO2 ON 97%. AFIB HR 150-160S. WITH ONGOING BLOOD TRANSFUSION ON RAC G20 IV. NO S/SX OF REACTION NOTED. WITH INTACT AND IN PLACED FLEXISEAL AND F/C. HOB ELEVATED. SAFETY MEASURES IN PLACED. PT IS FOR TRANSFER TO [facility] FOR SURGERY. CHARGE NURSE, HAL AWARE OF PT'S CONDITION AND ON PHONE WITH DR COBOS FOR ORDERS
--- NOTE | 2018-09-29 19:27 | NUR ---
RT Pt family requested not to give HHN tx at this time and to let the pt rest. No signs of SOB or respiratory distress noted, will continue to monitor. Addendum: 09/29/18 at 1938 by PETER ALVAREZ RT Amended: Links added.
--- NOTE | 2018-09-29 19:50 | NUR ---
Abbe SPOKE WITH DR. COBOS AND NOTIFIED HIM OF PATIENT CONDITION INCLUDING UNCONTROLLED A-FIB RVR, RESTLESSNESS REMOVING NONREBREATHER MASK, AND CONFUSION WITH ORDERS MADE, PATIENT'S DAUGHTER AT BEDSIDE AND AWARE OF PATIENT'S CONDITION. ORDERS NOTED AND CARRIED OUT.
[2018-09-29] MEDS ORDERED: FUROSEMIDE 20 MG/2 ML VIAL IV PRN (20:00)
--- NOTE | 2018-09-29 20:00 | NUR ---
RN NOTE BLOOD TRANSFUSION COMPLETE, NO REACTION NOTED.
--- NOTE | 2018-09-29 20:00 | NUR ---
FABRIC WORKER LEADER. RECEIVED THE PT FROM [facility] NOTED RT UPPER ARM SKIN TEAR. PICTURE TAKEN AND PLACED IN THE CHART
[2018-09-29 20:13] LABS: ABG BASE EXCESS -2.6 mmol/L; ABG OXYGEN SATURATION 97.2 % (92.0-98.5); ABG PCO2 47.1 mmHg (35.0-45.0); ABG PH 7.318 (7.350-7.450); ABG PO2 113.1 mmHg (75.0-100.0); AaDO2 552.8 mmHg; COHb 0.5 % (0.5-1.5); MetHb 0.8 % (0.0-1.5); O2Hb 95.9 % (94.0-97.0); SITE, ABG Right Radial
--- NOTE | 2018-09-29 20:20 | NUR ---
2019 TRANSFERRED TO ICU ON ACLS PROTOCOL ACCOMPANIED BY ICU CHARGE NURSE RT BRI AND PRIMARY NURSE ANN, PATIENT REMAINS AGITATED AND IN UNCONTROLLED A-FIB 130S. DAUGHTER REMAINS WITH PATIENT AND AWARE OF TRANSFER
[2018-09-29] MEDS ORDERED: OLANZAPINE 10 MG VIAL IM ONE (20:30)
[2018-09-29] MEDS ORDERED: DIGOXIN INJ 0.5 MG/2 ML AMPUL IV ONE (21:30)
[2018-09-29] MEDS ORDERED: AMIODARONE HCL 200 MG TABLET PO ONE (22:00)
--- NOTE | 2018-09-29 22:11 | NUR ---
Spoke to DR Miller, regarding patients respiratory status and abg results, per DR soler pt on NRB mask, if patient shows any signs of respiratory distress place patient on BIPAP. Verbalized understanding informed Erika charge nurse and Letitia primary nurse about the plan of care and MDS orders.
--- NOTE | 2018-09-29 22:52 | NUR ---
BRICKMASON HELPER. TRANSFER THE PT FROM [facility] FOR AFIB AND DESATURATED. NONREBREATHER PLACED FROM [facility]. HEAT SEALING MACHINE OPERATOR WAKE. ALERT, FOLLOW COMMANDS. REVENUE INTEGRITY ANALYST SHOWING AFIB. RATE IS 122. IV RT AC 22G. FC PATENT. FLEXA SEAL INTACT. MANJINDER SOFT WRIST RESTRAINT CHECKED AND RELEASED. NO INJURY OR REDNESS NOTED. IV RT AC 22G. SALINE LOCK. WILL CONTINUE TO MONITOR VITALS.
[2018-09-30] VITALS (29 sets, daily range): BP systolic 88–114; BP diastolic 43–71
--- NOTE | 2018-09-30 02:47 | NUR ---
GUEST SERVICES AMBASSADOR. AM CARE. ORAL CARE. BED BATH GIVEN. LINEN CHANGED. REMAINING SAME OXYGEN VIA N/A SAT 92%.O ACUTE DISTRESS NOTED. ROCKET ENGINE TESTER SHOWING AFIB. RATE IS 74. IV LT HAND 22G. SALINE LOCK.HOB ELEVATED. FC PATENT. URINE DRAINING. FLEXA SEAL INTACT. TURN AND REPOSITION Q2H. AFEBRILE. WILL CONTINUE TO MONITOR VITALS.
[2018-09-30] MEDS: IPRATROPIUM NEB FS 0.5 MG/2.5 ML AMPUL.NEB NEB SCH ×4 (03:20→14:47)
[2018-09-30 04:32] LABS: BASOPHILS % (AUTO) 0.3 % (0.0-2.0); EOSINOPHILS % (AUTO) 0.3 % (0.0-6.0); HEMATOCRIT 28 % (33-45); HEMOGLOBIN 8.9 g/dL (11.5-14.8); LYMPHOCYTES # (AUTO) 0.3 /CMM (0.8-4.8); LYMPHOCYTES % (AUTO) 4.9 % (20.0-44.0); MEAN CORPUSCULAR HGB CONC 32 g/dl (31.0-36.0); MEAN CORPUSCULAR VOLUME 89 fL (82-100); MONOCYTES # (AUTO) 0.7 /CMM (0.1-1.30); MONOCYTES % (AUTO) 11.7 % (2.0-12.0); NEUTROPHILS # (AUTO) 4.8 /CMM (1.8-8.9); NEUTROPHILS % (AUTO) 82.8 % (43.0-81.0); PLATELET COUNT (AUTO) 107 /CMM (150-450); WHITE BLOOD COUNT (AUTO) 5.8 K/uL (4.3-11.0)
[2018-09-30 04:46] LABS: ALANINE AMINOTRANSFERASE 22 U/L (12-78); ALBUMIN 2.7 g/dL (3.4-5.0); ALKALINE PHOSPHATASE 46 U/L (46-116); ASPARTATE AMINOTRANSFERASE 22 U/L (15-37); BILIRUBIN,TOTAL 1.6 mg/dL (0.2-1.0); CARBON DIOXIDE 31 mmol/L (21-32); CHLORIDE 107 mmol/L (98-107); GLUCOSE 91 mg/dL (74-106); MAGNESIUM 2.4 mg/dL (1.8-2.4); PHOSPHORUS 5.2 mg/dL (2.5-4.9); POTASSIUM 3.7 mmol/L (3.5-5.1); SODIUM SERUM 146 mmol/L (136-145); TOTAL PROTEIN, SERUM 6.6 g/dL (6.4-8.2); UREA NITROGEN, BLOOD 73 mg/dL (7-18)
[2018-09-30 04:54] LABS: CALCIUM, SERUM 7.8 mg/dL (8.5-10.1)
[2018-09-30] MEDS: METOPROLOL TARTRATE 25 MG TABLET PO SCH ×2 (05:42→12:22)
[2018-09-30] MEDS ORDERED: FUROSEMIDE 20 MG/2 ML VIAL IV SCH (07:00)
[2018-09-30] MEDS ORDERED: FUROSEMIDE 40 MG/4 ML VIAL IV ONE (08:00)
[2018-09-30] MEDS: PANTOPRAZOLE 40 MG TABLET.DR PO SCH (08:15)
[2018-09-30] MEDS: ALLOPURINOL 100 MG TABLET PO SCH (08:15)
--- NOTE | 2018-09-30 08:19 | NUR ---
INITIAL LIBRARY SPECIALIST NOTE RCVD PT AWAKE AND ALERT TO SELF, PLACE, RE-ORIENTED TO TIME, SITUATION. PT ABLE TO FOLLOW COMMANDS ON [place] LANGUAGE, WELSH. BILATERAL SOFT WRIST RESTRAINTS DICONTINUED PT'S DAUGHTER AT BEDSIDE AND PT APPEARS CALM. O2 VIA NC DECREASED TO 4L, PT TOLERATING WELL. RATE CONTROLLED AFIB ON MONITOR. FLEXI-SEAL IN PLACE WITH YELLOW LOOSE STOOL IN TUBING, BAIRD TO GRAVITY DRAINING YELLOW URINE. LEFT FA #22 FLUSHED AND LEAKING, DISCONTINUED AND MIDLINE REQUESTED, ELECTRICIAN'S HELPER NOTIFIED. WILL CONTINUE TO MONITOR PT FOR SAFETY AND COMFORT. BED IN LOW AND LOCKED POSITION. CALL LIGHT WITHIN REACH. HEAD OF BED ELEVATED.
--- NOTE | 2018-09-30 08:37 | NUR ---
WOUND CARE CONSULT: LIMITED ASSESSMENT TODAY (LIMITED TO ARMS) DUE TO PT'S DAUGHTER REFUSING PT TO BE TURNED AT THIS TIME. RT ARM SKIN TEAR NOTED. RECOMMENDATIONS MADE FOR WOUND CARE AND SKIN PROTECTION. DISCUSSED WITH NURSING STAFF. WILL SEE PT AT LATER TIME PT CONDITION PERMITS. PT'S DAUGHTER VERBALIZED UNDERSTANDING OF IMPORTANCE OF TURNING/OFFLOADING BONY PROMINENCES TO PREVENT PRESSURE ULCERS. PT ON FIRST STEP [facility] LOW AIRLOSS MATTRESS. PT NOTED TO HAVE VERY FRAGILE SKIN WHICH TEARS EASILY. CURRENT GHADA SCORE IS 12. MD IN AGREEMENT WITH PLAN OF CARE. Addendum: 09/30/18 at 0841 by TYLER JANE WNDNU Amended: Links added.
[2018-09-30] MEDS ORDERED: AMIODARONE HCL 200 MG TABLET PO SCH (09:00)
[2018-09-30] MEDS: Z GUARD REMEDY 2 OZ OINT TP SCH (09:27)
--- NOTE | 2018-09-30 10:10 | NUR ---
WOUND CARE CONSULT: PT PRESENTS WITH RT ANTERIOR LOWER LEG DRY SCAB, LEFT LATERAL LOWER LEG INTACT DEEP TISSUE INJURY AND SACRAL SCAR, ALL PRESENT ON ADMISSION. SKIN TEAR ON RT ARM PREVIOUSLY SEEN AND TREATMENT RECOMMENDED. RECOMMENDATIONS MADE FOR SKIN PROTECTION AND WOUND CARE. DISCUSSED WITH NURSING STAFF. PT NOTED TO HAVE BAIRD CATH AND RECTAL TUBE. PT ON FIRST STEP [facility]. WILL SEE PRN. HODGE IN AGREEMENT WITH PLAN OF CARE. Addendum: 09/30/18 at 1011 by TYLER JANE WNDNU Amended: Links added.
[2018-09-30] MEDS: ACETAMINOPHEN 325 MG TABLET PO PRN (12:22)
--- NOTE | 2018-09-30 15:24 | NUR ---
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 PT IN STABLE CONDITION, SHOWING NO SIGNS OF DISTRESS, PAIN OVER RIGHT HIP WHEN TRANSFERRING TO [facility] OBSERVED. TOLERATING O2 VIA NASAL CANNULA. FLEXISEAL IN PLACE, BAIRD IN PLACE DRAINING CLOUDY, YELLOW URINE. LEFT UPPER ARM MIDLINE IN PLACE C/D/I/PATENT. NO S/O INFILTRATION/PHLEBITIS OBSERVED UPON FLUSHING. PICTURES TAKEN PER POLICY. REPORT CALLED IN TO [facility] AND GIVEN TO PEDRO CONNOR PT TO GO TO ROOM 114-A. PT TRANSPORTED VIA AMBULANCE. PT'S DAUGHTER, MADELIN AT BEDSIDE UPDATED ON PT'S TRANSFER AND DECLINES TO GET FLU OR PNEUMONIA VACCINES AT THIS TIME.
--- NOTE | 2018-09-30 15:33 | NUR ---
TACTICAL AIR CONTROL PARTY NOTE DR. LUONG IN UNIT INFORMED OF PT BEING TRANSFERRED TO [facility] FOR PERICARDIAL WINDOW. HE ACKNOWLEDGED AND WILL FOLLOW AT THAT FACILITY.
== END 2018-09-30 15:21 | disposition short-term general hospital (02) | DRG 535 ==
LOC: ER 21:53 → TELE1 09-27 02:44 → ICU 09-27 10:32 → TELE-TD 09-28 21:51 → TELE1 09-29 12:36 → ICU 09-29 20:23
PROVIDERS: ADMIT Internal Medicine; ATTEND Internal Medicine
PROC: 5A09357 Assistance with Respiratory Ventilation, Less than 24 Consecutive Hours, Continuous Positive Airway Pressure (ICD-10-PCS; principal; 2018-09-27)
PROC: 30233N1 Transfusion of Nonautologous Red Blood Cells into Peripheral Vein, Percutaneous Approach (ICD-10-PCS; 2018-09-29)
PROC: 05H633Z Insertion of Infusion Device into Left Subclavian Vein, Percutaneous Approach (ICD-10-PCS; 2018-09-30)
DX: S72.141A Displaced intertrochanteric fracture of right femur, initial encounter for closed fracture (principal); J96.22 Acute and chronic respiratory failure with hypercapnia; J96.21 Acute and chronic respiratory failure with hypoxia; N17.0 Acute kidney failure with tubular necrosis; I50.32 Chronic diastolic (congestive) heart failure; I31.3 Pericardial effusion (noninflammatory); E46 Unspecified protein-calorie malnutrition; G93.40 Encephalopathy, unspecified; Z68.1 Body mass index [BMI] 19.9 or less, adult; I11.0 Hypertensive heart disease with heart failure; K21.9 Gastro-esophageal reflux disease without esophagitis; E87.5 Hyperkalemia; D64.9 Anemia, unspecified; I48.2 Chronic atrial fibrillation; I34.0 Nonrheumatic mitral (valve) insufficiency; W05.0XXA Fall from non-moving wheelchair, initial encounter; Y93.9 Activity, unspecified; Y92.129 Unspecified place in nursing home as the place of occurrence of the external cause; Z82.49 Family history of ischemic heart disease and other diseases of the circulatory system; R91.8 Other nonspecific abnormal finding of lung field
CPT/HCPCS: 36415; 36569; 36600; 70450-TC; 71045-TC; 71250-TC; 72125-TC; 73502; 73552; 73560-TC; 76770-TC; 80048-TC; 80053-TC; 80061-TC; 80162-TC; 81000-TC; 82728-TC; 82803-TC; 83540-TC; 83735-TC; 83880; 84100-TC; 84439-TC; 84443-TC; 84484-TC; 85025-TC; 85652-TC; 85730-TC; 86850-TC; 86921-TC; 87081-TC; 92526; 92611-TC; 93307-TC; 93970-TC; 94003-TC; 94799-TC; A6403; G0378; J1160; J1170; J1940; J2270; J2310; J2405; J3490; J7030; J7050; P9016-BL